=== PATIENT | female | born 1940 | race Caucasian/White ===

== ENCOUNTER 2022-08-25 09:23 | Outpatient (CLI) | payer MEDICARE, OTHER | END 2022-08-25 09:24 | disposition home or self-care (01) | LOC: RT 09:23 | PROVIDERS: ATTEND Family Medicine | DX: I48.91 Unspecified atrial fibrillation (principal) | CPT/HCPCS: 93005 ==

== ENCOUNTER 2023-12-05 10:14 | Outpatient (CLI) | payer MEDICARE, OTHER ==
[2023-12-05 10:40] LABS: BASOPHILS # (AUTO) 0.1 10^3/uL (0.0-0.1); BASOPHILS % (AUTO) 0.5 %; EOSINOPHILS # (AUTO) 0.1 10^3/uL (0.0-0.7); EOSINOPHILS % (AUTO) 1.2 %; HGB - HEMOGLOBIN 15.7 g/dL (12.0-16.0); LYMPHOCYTES # (AUTO) 3.8 10^3/uL (1.5-3.5); LYMPHOCYTES % (AUTO) 34.7 %; MEAN CORPUSCULAR HEMOGLOBIN 30.5 pg (27.0-31.0); MEAN CORPUSCULAR HGB CONC 34.1 g/dL (32.0-36.0); MEAN CORPUSCULAR VOLUME 89.5 fL (81.0-99.0); MEAN PLATELET VOLUME 9.6 fL (7.9-10.8); MONOCYTES # (AUTO) 0.6 10^3/uL (0.0-1.0); MONOCYTES % (AUTO) 5.8 %; NEUTROPHILS # (AUTO) 6.4 10^3/uL (1.5-6.6); NEUTROPHILS % (AUTO) 57.3 %; PLT - PLATELET COUNT 221 10^3/uL (130-450); RED BLOOD COUNT 5.14 10^6/uL (4.20-5.40); RED CELL DISTRIBUTION WIDTH 12.7 % (12.0-15.0); WHITE BLOOD COUNT 11.1 x10^3/uL (4.8-10.8)
[2023-12-05 11:05] LABS: ALBUMIN 4.4 g/dL (3.2-5.5); ALBUMIN/GLOBULIN RATIO 1.3 (1.0-2.2); ALKALINE PHOSPHATASE 82 IU/L (42-121); ALT ALANINE AMINOTRANSFERASE 17 IU/L (10-60); AST ASPARTATE AMINOTRANSFERASE 14 IU/L (10-42); BILIRUBIN,TOTAL 0.4 mg/dL (0.2-1.0); BUN - BLOOD UREA NITROGEN 12 mg/dL (6-20); CALCIUM 9.7 mg/dL (8.5-10.3); CARBON DIOXIDE - CO2 32 mmol/L (21-32); CHLORIDE 90 mmol/L (101-111); CHOL/HDL RATIO 2.9 (<4.4); CHOLESTEROL 198 mg/dL; CREATININE 0.5 mg/dL (0.6-1.3); GFR - MDRD 117 (>89); GLUCOSE 124 mg/dL (74-104); HDL CHOLESTEROL 68 mg/dL; LDL CHOLESTEROL,CALCULATED 101 mg/dL; LDL/HDL RATIO 1.5 (<4.4); MAGNESIUM 1.6 mg/dL (1.7-2.3); SODIUM 132 mmol/L (135-145); TOTAL PROTEIN 7.8 g/dL (6.4-8.9); TRIGLYCERIDES 143 mg/dL; VLDL CHOLESTEROL 29 mg/dL
[2023-12-05 11:18] LABS: THYROID STIMULATING HORMONE 0.83 uIU/mL (0.34-5.60)
== END 2023-12-05 10:15 | disposition home or self-care (01) ==
LOC: LAB 10:14
PROVIDERS: ATTEND Family Medicine
DX: Z13.0 Encounter for screening for diseases of the blood and blood-forming organs and certain disorders involving the immune mechanism (principal); Z13.228 Encounter for screening for other metabolic disorders; Z13.220 Encounter for screening for lipoid disorders; Z13.29 Encounter for screening for other suspected endocrine disorder; E78.01 Familial hypercholesterolemia; E61.2 Magnesium deficiency; I10 Essential (primary) hypertension; E03.9 Hypothyroidism, unspecified; E55.9 Vitamin D deficiency, unspecified; D51.9 Vitamin B12 deficiency anemia, unspecified
CPT/HCPCS: 36415; 80053; 80061; 82306; 82607; 83721; 83735; 84443; 85025